=== PATIENT | male | born 1990 | race Caucasian/White ===

== ENCOUNTER 2019-07-14 12:27 | Emergency (ER) | payer OTHER ==
[~2019-07-14] VITALS: Ht 177.8 cm; Wt 108.9 kg
[2019-07-14] MEDS ORDERED: TETANUS/DIPHTHERIA TOX ADULT 0.5 ML SYR IM ONE (13:00)
[2019-07-14] MEDS ORDERED: DOXYCYCLINE HY100 MG PO (13:07)
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
[2019-07-14] MEDS ORDERED: TETANUS/DIPHTHERIA TOX ADULT 0.5 ML SYR ONE (13:17)
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
== END 2019-07-14 13:58 | disposition home or self-care (01) ==
LOC: FSED 12:27
DX: S51.811A Laceration without foreign body of right forearm, initial encounter (principal); S61.411A Laceration without foreign body of right hand, initial encounter; X99.1XXA Assault by knife, initial encounter; Y92.488 Other paved roadways as the place of occurrence of the external cause
CPT/HCPCS: 90471; 90714; 96372; 99282

== ENCOUNTER 2019-07-14 14:31 | Emergency (ER) | payer OTHER ==
[~2019-07-14 14:31] MED LIST: DOXYCYCLINE HY100 MG PO
--- NOTE | 2019-07-14 14:35 | NUR ---
Roque nguyen went into patients room 3 to get VS and to do orthostatic VS. when pt questioned tech about this being the same visit and tech told pt no, this would be a different charge. pt refused to continue with VS and requested to see the MD. after pt talked with Dr Paz, pt came out of room and stated he was leaving. pt did not sign refusal to continue treatment. pt stated he wanted 3 days off from work and that he does not have time for the ER to draw blood and have the ER doc evaluate him for his dizziness.
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
== END 2019-07-14 14:45 | disposition left against medical advice (07) ==
LOC: FSED 14:31
DX: R42 Dizziness and giddiness (principal)